=== PATIENT | female | born 1990 | race Caucasian/White ===

== ENCOUNTER 2017-11-03 06:55 | Day surgery (SDC) | payer BC ==
[2017-10-31 10:49] VITALS: BMI 49.0
--- NOTE | 2017-10-31 11:29 | HP ---
HISTORY OF PRESENT ILLNESS: Miesha Hart is a 27-year-old female with 10 year history of left latera l thigh lipoma this is enlarged and it is 12 x 8 cm and causes pain. However, she desires excision. We will plan this in the operating room as an outpatient. She is 304 pounds, 66 inches, BMI 49. ALLERGIES: PENICILLIN, hives; SULFA, hives; ADVIL and Motrin, hives. She can take ALEVE without pro blems. PAST SURGICAL HISTORY: Noncontributory. PAST MEDICAL HISTORY: Noncontributory. 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 REVIEW OF SYSTEMS: [employer] noncontributory. PHYSICAL EXAMINATION: VITAL SIGNS: 304 pounds, 66 inches, 49 BMI, 145/98, 105, 98.4 degrees. HEENT: Unremarkable. LUNGS: Clear to auscultation. CARDIAC: Regular rate and rhythm without murmur or gallop. ABDOMEN: Soft, obese. EXTREMITIES: Left lateral thigh. A 12 x 8 cm lipoma. ASSESSMENT AND PLAN: Large lipoma, left thigh. We will plan excision under general anesthesia outpa tient. She understands she may have a drain. She understands risks of infection, bleeding, reoperat ion, and consents.
[2017-11-03] MEDS ORDERED: Levofloxacin 500 mg/D5W 100 ml Premix Bag ONE (08:00)
[2017-11-03 08:01] LABS: #Basophils 0.1 thou/uL (0.0-0.2); #Eosinphils 0.1 thou/uL (0.0-0.7); #Lymphocytes 2.8 thou/uL (1.20-3.40); #Monocytes 0.7 thou/uL (0.11-0.59); #Neutrophils 8.6 thou/uL (1.40-6.50); %Basophils 0.5 % (0.0-1.0); %Eosinophils 1.2 % (0.0-10.0); %Lymphocytes 22.6 % (21.0-51.0); %Monocytes 5.8 % (0.0-10.0); %Neutrophils 69.9 % (42.0-75.0); Hemoglobin 13.7 g/dL (12.0-16.0); Mean Corpuscular HGB CONC 32.8 g/dL (32.0-36.0); Mean Corpuscular Hemoglobin 29.6 pg (27.0-31.0); Mean Corpuscular Volume 90.2 fl (81.0-99.0); Mean Platelet Volume 5.7 fL (7.4-10.4); Platelet Count 390 thou/uL (130-400); RBC Distribution Width 12.3 % (11.5-14.5); Red Blood Cell (RBC) Count 4.64 mill/uL (4.20-5.40); White Blood Cell (WBC) Count 12.3 thou/uL (4.8-10.8)
[2017-11-03] MEDS ORDERED: Bupivacaine HCl 0.5%/Epinephrine 1:200,000/PF 30 ml Vial ONE (08:09)
[2017-11-03] MEDS ORDERED: Metoclopramide HCl 10 MG/2 ML VIAL ONE ×2 (08:19→16:43)
[2017-11-03] MEDS ORDERED: HYDROmorphone 0.5 MG/0.5 ML SYRINGE ONE (08:19)
[2017-11-03 08:22] LABS: Anion Gap 12 mmol/L (10-20); BUN (Urea Nitrogen) 14 mg/dL (7.0-18.7); Calc. Creatinine Clearance 223 mL/min (70-130); Calcium 9.3 mg/dL (7.8-10.44); Carbon Dioxide 25 mmol/L (22-29); Chloride 104 mmol/L (98-107); Estimated GFR-MDRD 84; Glucose 90 mg/dL (70-105); Sodium 137 mmol/L (136-145)
--- NOTE | 2017-11-03 09:16 | OP ---
DATE OF PROCEDURE: 11/03/2017 PREOPERATIVE DIAGNOSES: Lipoma left lateral thigh, morbid obesity. POSTOPERATIVE DIAGNOSES: Lipoma left lateral thigh, morbid obesity. PROCEDURE: Excision of lipoma, left lateral thigh, 13 cm incision, layered closure, #19 gold SEAN higuera. SURGEON: Dr. Phil Gaona ANESTHESIA: General. Local 0.5% Marcaine with epinephrine 30 mL mixed with 2% Xylocaine, 10 mL. ESTIMATED BLOOD LOSS: Less than 20 mL. BLOOD TRANSFUSED: None. Note poorly defined lipomatous mass excised from the quadriceps fascia. PROCEDURE IN DETAIL: Patient taken to the operating room where under general anesthesia in the supin e position, the left thigh was prepared with ChloraPrep, draped in usual fashion. A 13 cm incision m bladimir and carried down the skin and subcutaneous tissue longitudinally in the mid lateral thigh. A poo rly defined lipomatous mass excised down to the fascia. Hemostasis gained with the cautery. Specime n submitted to pathology. Subcutaneous tissues approximated with 3-0 Monocryl, skin with subdermal 4 -0 Monocryl after #19 gold SEAN drain placed and secured through an inferior stab incision, securing it with 3-0 nylon suture. Biopatch and sterile dressing applied.
[2017-11-03] MEDS ORDERED: traMADol HCl 50 MG TAB ONE (11:28)
[2017-11-03] MEDS ORDERED: Lidocaine 1% PF 5 ML VIAL ONE (16:43)
[2017-11-03] MEDS ORDERED: Ondansetron HCl/PF 4 MG/2 ML Vial ONE (16:43)
[2017-11-03] MEDS ORDERED: Propofol 200 MG/20 ML VIAL ONE (16:43)
[2017-11-03] MEDS ORDERED: diphenhydrAMINE 50 MG/ML VIAL ONE (16:43)
[2017-11-03] MEDS ORDERED: Dexamethasone 20 MG/5 ML VIAL ONE (16:43)
== END 2017-11-03 12:22 | disposition home or self-care (01) ==
LOC: SDC 06:55
PROVIDERS: ATTEND Specialist
PROC: 0JQM0ZZ Repair Left Upper Leg Subcutaneous Tissue and Fascia, Open Approach (ICD-10-PCS; principal; 2017-11-03)
PROC: 0HBJXZZ Excision of Left Upper Leg Skin, External Approach (ICD-10-PCS; principal; 2017-11-03)
DX: D17.24 Benign lipomatous neoplasm of skin and subcutaneous tissue of left leg (principal); G47.30 Sleep apnea, unspecified; D64.9 Anemia, unspecified; E28.2 Polycystic ovarian syndrome; F32.9 Major depressive disorder, single episode, unspecified; F41.9 Anxiety disorder, unspecified; F90.9 Attention-deficit hyperactivity disorder, unspecified type; E66.01 Morbid (severe) obesity due to excess calories; Z68.42 Body mass index [BMI] 45.0-49.9, adult; Z79.84 Long term (current) use of oral hypoglycemic drugs; Z79.3 Long term (current) use of hormonal contraceptives; Z79.899 Other long term (current) drug therapy; Z88.0 Allergy status to penicillin; Z88.2 Allergy status to sulfonamides; Z88.6 Allergy status to analgesic agent; Z88.8 Allergy status to other drugs, medicaments and biological substances; Z91.018 Allergy to other foods; Z91.048 Other nonmedicinal substance allergy status
CPT/HCPCS: 80048; 85025; 88304; J0131; J0670; J1100; J1170; J1200; J1956; J2001; J2405; J2704; J2765

== ENCOUNTER 2022-11-20 14:54 | Outpatient (CLI) | payer BC ==
[~2022-11-20 14:54] MED LIST: Magnevist 469MG/ML 20 ML VIAL ONE
== END 2022-11-20 14:55 | disposition home or self-care (01) ==
LOC: TBSIIMAG 14:54
PROVIDERS: ATTEND Neurological Surgery
DX: D32.9 Benign neoplasm of meninges, unspecified (principal); Z98.890 Other specified postprocedural states
CPT/HCPCS: 70553

== ENCOUNTER 2022-11-20 16:10 | Emergency (ER) | payer BC | END 2022-11-20 16:47 | disposition left against medical advice (07) | LOC: ERS 16:10 | DX: Z53.21 Procedure and treatment not carried out due to patient leaving prior to being seen by health care provider (principal) ==